=== PATIENT | female | born 1995 | race Caucasian/White ===

== ENCOUNTER 2017-10-18 20:44 | Emergency (ER) | payer OTHER ==
[~2017-10-18] VITALS: Ht 160 cm; Wt 82.6 kg
[2017-10-18 20:51] VITALS: TEMP 36.4; Ht 160 cm; Wt 82.6 kg
[2017-10-18 21:00] VITALS: O2SAT 96
[2017-10-18] MEDS ORDERED: IBUP-1050 PO (21:14)
[2017-10-18 21:52] LABS: CALCIUM 9.2 mg/dl (8.5-10.1); CREATININE 0.76 mg/dl (0.60-1.20); POTASSIUM 2.8 mmol/L (3.5-5.1)
[2017-10-19 01:02] VITALS: BP 118/65; PULSE 60; O2SAT 97
--- NOTE | 2017-10-19 01:11 | EMERGENCY ROOM VISIT NOTE ---
History Report prepared by Roscoeibwilliam: Fauzia Magdaleno Under the Supervision of: Dr. Jhon Ferrara M.D. First contact with patient: 20:48 Chief Complaint: ALCOHOL OVERDOSE Stated Complaint: ALCOHOL Nursing Triage Summary: Patient drank 4 smirnoff Ices and one shot, did not eat today. Patient was at the concert at the [facility] and was vomitting. Patient cooperative on arrival to ER. History of Present Illness The patient is a 22 year old female who presents to the Emergency Room with complaints of an episode of an alcohol overdose occurring prior to arrival. Per EMS, the patient was supposed to go to the [facility], but did not make it there. They state that she told them that she was drinking Smirnoff Ice. HPI and ROS limited secondary to alcohol intoxication. Source of History: EMS History Limited By: intoxication Onset: prior to arrival Position: other (global) Quality: other (overdose) Timing: other (episode) Review of Systems See HPI for pertinent positives & negatives. A total of 10 systems reviewed and were otherwise negative. Family History Patient reports no known family medical history. Social History Smoking Status: Never Smoker Alcohol Use: occasionally Marital Status: single Housing Status: lives with roommate Occupation Status: [employer] student Current/Historical Medications Scheduled PRN Ibuprofen (Advil), 200-600 MG PO Q4H PRN for Pain or Fever Allergies Coded Allergies: No Known Allergies (Unverified , 10/18/17) Physical Exam Vital Signs Date Time Temp Pulse Resp B/P (MAP) Pulse Ox O2 Delivery O2 Flow Rate FiO2 10/19/17 01:02 60 18 118/65 97 10/18/17 23:13 68 18 120/71 97 Room Air 10/18/17 21:20 99 19 110/75 97 Room Air 10/18/17 21:00 96 Room Air 10/18/17 21:00 Room Air 10/18/17 20:59 99 10/18/17 20:51 36.4 100 18 118/66 96 Room Air Physical Exam Vital signs reviewed. General: Odor of EtOH in the breath, disheveled 22-year-old female. No signs of trauma. HEENT: Mild scleral injection bilaterally, PERRLA, neck supple, dry mucous membranes. Cardiovascular: Regular rate and rhythm, no extra sounds. Pulmonary: Clear to auscultation bilaterally, normal work of breathing. Abdomen: Soft, nontender, nondistended, positive bowel sounds. Musculoskeletal: Upper and lower extremities atraumatic, no peripheral edema Skin: Warm, dry, no rash. Atraumatic. Neurologic: Patient is currently nonverbal. Medical Decision & Procedures Laboratory Results 10/18/17 21:01 Test 10/18/17 21:01 10/18/17 21:06 Anion Gap 11.0 mmol/L (3-11) Est Creatinine Clear Calc Drug Dose 120.2 ml/min Estimated GFR () 130.9 Estimated GFR (Non- 112.9 BUN/Creatinine Ratio 11.0 (10-20) Calcium Level 9.2 mg/dl (8.5-10.1) Human Chorionic Gonadotropin, Qual NEG (NEG) Ethyl Alcohol mg/dL 161.5 mg/dl (0-3) Bedside Glucose 138 mg/dl (70-90) Labs reviewed by ED physician. ED Course 2047: Past medical records reviewed. The patient was evaluated in room C11A. A complete history and physical examination was performed. 2335: Upon reexamination the patient is resting comfortably. She states that she has a sober friend that can come get her. I discussed results and treatment plan with the patient. She verbalizes agreement and understanding. The patient is ready for discharge. Medical Decision Differential diagnosis: Etiologies such as alcohol intoxication, toxicologic, infection, hypoglycemia, electrolyte abnormalities, cardiac sources, intracerebral event, neurologic, as well as others were entertained. This is a 22-year-old female who presents emergency department after being found at the [facility] intoxicated. She was brought to the emergency department. She was placed in supine position. Aspiration precautions were taken and the patient was placed on the monitor. An alcohol level was obtained. After sometime patient's intoxication did clear and I feel she is able to be discharged home. I strongly recommended that the patient discuss this visit with her parents. Medication Reconcilliation Current Medication List: was personally reviewed by me Blood Pressure Screening Patient's blood pressure: Normal blood pressure Blood pressure disposition: Did not require urgent referral Impression Primary Impression: Alcohol use with intoxication Additional Impression: Alcohol overdose Scribe Attestation The scribe's documentation has been prepared under my direction and personally reviewed by me in its entirety. I confirm that the note above accurately reflects all work, treatment, procedures, and medical decision making performed by me. Departure Information Dispostion Home / Self-Care Referrals No Doctor, Assigned (PCP) Forms HOME CARE DOCUMENTATION FORM, School Instructions, Work Instructions, IMPORTANT VISIT INFORMATION Patient Instructions Alcohol Abuse - [facility], My [facility], [facility]: [employer] Students and Alcohol Related Visits Additional Instructions LIZZIE = 160 You have been examined and treated today on an emergency basis only. This is not a substitute for, or an effort to provide, complete comprehensive medical care. It is impossible to recognize and treat all injuries or illnesses in a single emergency department visit. It is therefore important that you follow up closely with [facility]. Call as soon as possible for an appointment. Thank you for your time and consideration. I look forward to speaking with you again soon. Please don't hesitate to call us if you have any questions. Problem Qualifiers Additional Impression: Alcohol overdose Encounter type: initial encounter Injury intent: accidental or unintentional Qualified Codes: T51.91XA - Toxic effect of unspecified alcohol , accidental (unintentional), initial encounter
== END 2017-10-19 01:04 | disposition home or self-care (01) ==
LOC: C.EDC 20:45
DX: F10.129 Alcohol abuse with intoxication, unspecified (principal); T51.91XA Toxic effect of unspecified alcohol, accidental (unintentional), initial encounter; Y90.6 Blood alcohol level of 120-199 mg/100 ml